=== PATIENT | female | born 1975 | race Caucasian/White ===

== ENCOUNTER 2017-12-29 21:28 | Emergency (ER) | payer BC, OTHER ==
[2017-12-29 21:51] VITALS: BP 123/79
--- NOTE | 2017-12-29 22:03 | UC ---
UC General HPI - HPI Summary HPI Summary: Patient is complaining of feeling like "crap". She describes this as a sore throat, body aches, cough, head and chest congestion. This began yesterday. Her daughter has been sick with cough and congestion as well. - History of Current Complaint Chief Complaint: UCGeneralIllness Stated Complaint: COUGH, SINUSES, SORE THROAT Time Seen by Provider: 12/29/17 21:53 Hx Obtained From: Patient Hx Last Menstrual Period: mirena Onset/Duration: Gradual Onset Timing: Constant Pain Intensity: 0 Associated Signs & Symptoms: Positive: Cough, Headache - Allergy/Home Medications Allergies/Adverse Reactions: Allergies Allergy/AdvReac Type Severity Reaction Status Date / Time environmental allergies Allergy Congestion Uncoded 12/29/17 21:51 Home Medications: Home Medications NK [No Home Medications Reported] 12/29/17 [History Confirmed 12/29/17] PMH/Surg Hx/FS Hx/Imm Hx - Additional Past Medical History Additional PMH: Anxiety, gastric reflux and sinusitis. - Surgical History Surgical History: Yes Surgery Procedure, Year, and Place: cholecystectomy. ganglion cyst Left wrist. [facility]. sleep apnea surgery - Family History Known Family History: Positive: None - Social History Occupation: Employed Full-time Lives: With Family Alcohol Use: Rare Substance Use Type: None Smoking Status (MU): Heavy Every Day Tobacco Smoker Amount Used/How Often: 1 ppd - Immunization History Most Recent Influenza Vaccination: not this season Vaccination Up to Date: Yes Review of Systems Constitutional: Negative Skin: Negative Eyes: Negative ENT: Sore Throat, Sinus Congestion Respiratory: Cough Cardiovascular: Negative Gastrointestinal: Negative Genitourinary: Negative Motor: Negative Neurovascular: Negative Musculoskeletal: Myalgia Neurological: Headache Psychological: Negative Is Patient Immunocompromised?: No All Other Systems Reviewed And Are Negative: Yes Physical Exam Triage Information Reviewed: Yes Appearance: Well-Appearing Vital Signs: Initial Vital Signs Temp 97.7 F 12/29/17 21:46 Pulse 98 12/29/17 21:46 Resp 17 12/29/17 21:46 BP 123/79 12/29/17 21:46 Pulse Ox 98 12/29/17 21:46 Vital Signs Reviewed: Yes Eyes: Positive: Conjunctiva Clear ENT: Positive: Pharynx normal, Nasal congestion, TMs normal, Uvula midline. Negative: Nasal drainage, Trismus, Muffled voice, Hoarse voice Neck: Positive: Supple, Nontender, No Lymphadenopathy Respiratory: Positive: Lungs clear, No respiratory distress, Decreased breath sounds, Other: - Patient has congested cough Cardiovascular: Positive: RRR, No Murmur Abdomen Description: Positive: Nontender, No Organomegaly, Soft Bowel Sounds: Positive: Present Musculoskeletal: Positive: ROM Intact Neurological: Positive: Alert Psychological: Positive: Age Appropriate Behavior Skin Exam: Normal Diagnostics - Laboratory Diagnostic Studies Completed/Ordered: rapid strep=NEG Course/Dx - Course Course Of Treatment: rapid strep=neg. nothing to suggest bacterial infection. tx is supportive. - Differential Dx - Multi-Symptom Provider Diagnoses: URI. Bronchitis Discharge - Sign-Out/Discharge Documenting (check all that apply): Patient Departure All imaging exams completed and their final reports reviewed: No Studies - Discharge Plan Condition: Stable Disposition: HOME Patient Education Materials: Upper Respiratory Infection (ED), Acute Bronchitis (ED) Forms: *Work Release Referrals: Chey Adames PA [Primary Care Provider] - 5 Days Additional Instructions: USE THE ALBUTEROL INHALER 2 PUFFS EVERY 6 HOURS - Billing Disposition and Condition Condition: STABLE Disposition: Home
[2017-12-29] MEDS ORDERED: Albuterol HFA INHALER* 8 gm MDI INH ONE (22:22)
== END 2017-12-29 23:00 | disposition home or self-care (01) ==
LOC: UCCORT 21:28
DX: J06.9 Acute upper respiratory infection, unspecified (principal); J40 Bronchitis, not specified as acute or chronic; F17.210 Nicotine dependence, cigarettes, uncomplicated
CPT/HCPCS: 87651; 99212; A9270-GY; G0463

== ENCOUNTER 2018-10-05 13:23 | Emergency (ER) | payer BC, OTHER ==
[2018-10-05 14:01] VITALS: BP 133/72
--- NOTE | 2018-10-05 14:41 | UC ---
Minor Trauma HPI - HPI Summary HPI Summary: 43 yo female was getting into hammock when it broke no LOC this occurred yesterday Worse pain left foot...able to bear wt then right post ribs the left thumb then head ache - History of Current Complaint Chief Complaint: UCLowerExtremity Stated Complaint: SP FALL-BACK PAIN Time Seen by Provider: 10/05/18 14:32 Hx Obtained From: Patient Hx Last Menstrual Period: mirena Onset/Duration: Sudden Onset, Lasting Hours Onset Of Pain: Immediate Severity Initially: Moderate Severity Currently: Moderate Pain Intensity: 7 Pain Scale Used: 0-10 Numeric Mechanism Of Injury: Fall From Height Of: - 2- 3 feet Aggravating Factor(s): Ambulation, Weight Bearing Alleviating Factor(s): OTC Meds, Rest Associated Signs And Symptoms: Positive: Swelling - dorsum of left foot. Negative: Loss Of Consciousness - Allergies/Home Medications Allergies/Adverse Reactions: Allergies Allergy/AdvReac Type Severity Reaction Status Date / Time environmental allergies Allergy Congestion Uncoded 10/05/18 14:01 Home Medications: Home Medications Cholecalciferol (Vitamin D3) [Vitamin D3] 2,000 unit PO DAILY 10/05/18 [History Confirmed 10/05/18] Loratadine [Claritin] 10 mg PO DAILY 10/05/18 [History Confirmed 10/05/18] hydrOXYzine HCL TAB* [Atarax 25 MG TAB*] 25 mg PO QID PRN 10/05/18 [History Confirmed 10/05/18] PMH/Surg Hx/FS Hx/Imm Hx Previously Healthy: Yes - Surgical History Surgical History: Yes Surgery Procedure, Year, and Place: cholecystectomy. ganglion cyst Left wrist. [facility]. sleep apnea surgery - Family History Known Family History: Positive: Cardiac Disease, Hypertension, Diabetes - Social History Alcohol Use: Rare Substance Use Type: None Smoking Status (MU): Former Smoker Amount Used/How Often: 1 ppd When Did the Patient Quit Smoking/Using Tobacco: 05/08/18 - Immunization History Most Recent Influenza Vaccination: not this season Vaccination Up to Date: Yes Review of Systems All Other Systems Reviewed And Are Negative: Yes Constitutional: Positive: Negative Skin: Positive: Negative Eyes: Positive: Negative ENT: Positive: Negative Respiratory: Positive: Negative Cardiovascular: Positive: Negative Gastrointestinal: Positive: Negative Genitourinary: Positive: Negative Motor: Positive: Negative Neurovascular: Positive: Negative Musculoskeletal: Positive: Arthralgia Neurological: Positive: Headache Psychological: Positive: Negative Physical Exam Triage Information Reviewed: Yes Appearance: Well-Appearing, No Pain Distress, Well-Nourished Vital Signs: Initial Vital Signs Temp 98.0 F 10/05/18 13:54 Pulse 94 10/05/18 13:54 Resp 16 10/05/18 13:54 BP 133/72 10/05/18 13:54 Pulse Ox 96 10/05/18 13:54 Vital Signs Reviewed: Yes Eyes: Positive: Conjunctiva Clear ENT: Positive: Hearing grossly normal. Negative: Nasal congestion, Nasal drainage, Trismus, Muffled voice, Hoarse voice Dental Exam: Normal Neck: Positive: Supple, Nontender, No Lymphadenopathy Respiratory: Positive: Lungs clear, Normal breath sounds, No respiratory distress, No accessory muscle use Cardiovascular: Positive: RRR, No Murmur Musculoskeletal: Positive: ROM Intact, No Edema Neurological: Positive: Alert Psychological Exam: Normal Skin: Negative: Breakdown Images Hands: 1 - no swelling, niuld pain with ROM Feet (Multiple View): 1 - pain/tenderness dorsum of mid foot Front/Back of Body, Lg (Harris): 1 - tender Diagnostics - Radiology No standard instances Radiology Interpretation Completed By: Radiologist Summary of Radiographic Findings: right ribs and left foot - no fx Minor Trauma Course/Dx - Differential Dx/Diagnosis Provider Diagnosis: Contusion of rib on right side, Sprain of left foot, Left thumb sprain, Post- traumatic headache Discharge - Sign-Out/Discharge Documenting (check all that apply): Patient Departure All imaging exams completed and their final reports reviewed: Yes - Discharge Plan Condition: Stable Disposition: HOME Patient Education Materials: Acute Headache (ED), Contusion in Adults (ED), Foot Sprain (ED), Post Surgical Shoe (ED) Forms: *Work Release Referrals: [facility] [Outside] - If Needed Additional Instructions: rest elevate ice tylenol or advil for pain recheck in one week if not better - Billing Disposition and Condition Condition: STABLE Disposition: Home
== END 2018-10-05 16:03 | disposition home or self-care (01) ==
LOC: UCCORT 13:23
DX: S20.221A Contusion of right back wall of thorax, initial encounter (principal); S93.602A Unspecified sprain of left foot, initial encounter; S63.602A Unspecified sprain of left thumb, initial encounter; G44.309 Post-traumatic headache, unspecified, not intractable; W17.89XA Other fall from one level to another, initial encounter; Y93.89 Activity, other specified; Y92.9 Unspecified place or not applicable; Z87.891 Personal history of nicotine dependence
CPT/HCPCS: 99212; G0463